=== PATIENT | female | born 1970 | race Caucasian/White ===

== ENCOUNTER → 2016-07-03 | Outpatient (CLI) | payer OTHER | LOC: BRMIMAGING 11:36 | DX: R14.0 Abdominal distension (gaseous) (principal); N83.202 Unspecified ovarian cyst, left side; I86.2 Pelvic varices | CPT/HCPCS: 76705-PO; 76856-PO ==

== ENCOUNTER → 2016-09-11 | Outpatient (CLI) | payer OTHER | LOC: CIMAGING 09:50 | DX: Z12.31 Encounter for screening mammogram for malignant neoplasm of breast (principal) | CPT/HCPCS: G0202 ==

== ENCOUNTER → 2017-12-28 | Outpatient (CLI) | payer OTHER | LOC: CIMAGING 11:18 | PROVIDERS: ATTEND Internal Medicine | DX: Z12.31 Encounter for screening mammogram for malignant neoplasm of breast (principal) ==